=== PATIENT | female | born 1980 | race Caucasian/White ===

== ENCOUNTER 2016-09-01 06:35 | Emergency (ER) | payer BC ==
[~2016-09-01] VITALS: Ht 170.2 cm; Wt 67.0 kg
[~2016-09-01 06:35] MED LIST: PREN0.01 PO
[2016-09-01 06:37] VITALS: BP 171/94; PULSE 69; RESP 16; TEMP 98; O2SAT 100
[2016-09-01] MEDS ORDERED: LEXA10TA PO (06:50)
[2016-09-01] MEDS ORDERED: TRAM50TA PO (06:50)
[2016-09-01] MEDS ORDERED: CYCL1TAB29 PO (06:50)
[2016-09-01 06:51] VITALS: BP 178/104; PULSE 81; RESP 16; O2SAT 100
[2016-09-01] MEDS ORDERED: KETOROLAC TROMETHAMINE 30 MG/ML (IVP) VIAL IVP ONE (07:15)
[2016-09-01] MEDS ORDERED: MORPHINE SULFATE 4 MG/ML INJ IV PUSH ONE ×2 (07:15→08:00)
[2016-09-01] MEDS ORDERED: ONDANSETRON HCL 4 MG/2 ML VIAL IV ONE (07:30)
--- NOTE | 2016-09-01 07:36 | PD ---
HPI Chief Complaint: Pain: Acute or Chronic Time Seen by Provider: 06:51 Travel History International Travel<30 days: No Contact w/Intl Traveler<30days: No Traveled to known affect area: No History of Present Illness HPI So well 36-year-old woman presents to the emergency department with right arm pain. She states that approximately 3 days ago she started getting pain in the right shoulder radiating from the right side neck. Over the next couple days pain became progressively worse, radiated down the outside of the right arm into the thumb and first finger. She describes painful paresthesias and tingling. No numbness. Difficulty using the arm because of pain, but no weakness. [facility] she likely had a pinched nerve and was given prescriptions for anti-inflammatory medicine, tramadol, and a muscle relaxer. She's been taking tramadol and Flexeril but has not helped. Symptoms were severe, she had difficulty sleeping last night, and so she came to the emergency department today. She's never had previous similar symptoms. No recent trauma, increase use, or other similar symptoms. She otherwise had been feeling generally well and healthy prior to the onset of the symptoms. History Past Medical History Narrative Medical PTSD Mitral valve prolapse Tetanus Vaccination: > 5 Years Influenza Vaccination: No LMP: 08/26/16 : 2 Para: 2 Social History Alcohol Use: Yes Tobacco Use: No Allergies-Medications (Allergen,Severity, Reaction): Coded Allergies: No Known Allergies (Verified , 09/01/16) Reported Meds & Prescriptions Reported Meds & Active Scripts Active Reported Lexapro (Escitalopram Oxalate) 10 Mg Tab 10 Mg PO DAILY Tramadol (Tramadol HCl) 50 Mg Tab 50 Mg PO Q6H PRN Flexeril (Cyclobenzaprine HCl) 10 Mg Tab 10 Mg PO TID Vitamins 1 Tab PO DAILY While Review of Systems Except as stated in HPI: all other systems reviewed are Neg Physical Exam Narrative GENERAL: Well-appearing 36-year-old woman, no acute distress. SKIN: Warm and dry. HEAD: Atraumatic. Normocephalic. EYES: Pupils equal and round. No scleral icterus. No injection or drainage. ENT: No nasal bleeding or discharge. Mucous membranes pink and moist. NECK: Trachea midline. No JVD. CARDIOVASCULAR: Regular rate and rhythm. No murmur appreciated. RESPIRATORY: No accessory muscle use. Clear to auscultation. Breath sounds equal bilaterally. GASTROINTESTINAL: Abdomen soft, non-tender, nondistended. Hepatic and splenic margins not palpable. MUSCULOSKELETAL: No obvious deformities. No edema. She guards her right arm from a lot of movement. She describes pain in the neck shoulder down the arm. There is no significant tenderness. Strength is full and equal in the upper extremity, may be trace weakness in elbow flexion and wrist extension. Sensation is intact to light touch and symmetric throughout both upper extremities. Reflexes are little bit diminished in the right brachioradialis, 2 + in both biceps, 1+ both triceps. NEUROLOGICAL: Awake and alert. No obvious cranial nerve deficits. Motor grossly within normal limits. Normal speech. Data Data Last Documented VS Vital Signs Date Time Temp Pulse Resp B/P Pulse Ox O2 Delivery O2 Flow Rate FiO2 09/01/16 09:15 98.3 98 18 144/94 99 Room Air Orders Ketorolac Inj (Toradol Inj) (09/01/16 07:15) Morphine Inj (Morphine Inj) (09/01/16 07:15) Iv Access Insert/Monitor (09/01/16 07:09) Mri C Spine W/O Contrast (09/01/16 ) Ondansetron Inj (Zofran Inj) (09/01/16 07:30) Morphine Inj (Morphine Inj) (09/01/16 08:00) Diphenhydramine Inj (Benadryl Inj) (09/01/16 09:15) Methylprednisolone So Succ Inj (Solumedr (09/01/16 09:15) Hydromorphone Pf Inj (Dilaudid Pf Inj) (09/01/16 10:00) MDM Medical Decision Making Medical Screen Exam Complete: Yes Emergency Medical Condition: Yes Interpretation(s) MRI cervical spine: Degenerative changes are noted with disc protrusions at C5 6 and C6 7, most pronounced at C6 7 with a large right foraminal protrusion. Differential Diagnosis Herniated disc, radiculopathy, dissection or occlusion, shingles, other Narrative Course Medical decision making This is a 36-year-old woman who presents to the emergency department with what appears to be a right sided C6 radiculopathy. She is no history of neck problems. She appears been pretty significant discomfort. She may have trace motor weakness on that side. Other potential etiologies such as dissection seem unlikely. No evidence of infection. No symptoms outside the right arm. We'll check MRI of the C-spine, likely place steroids, opiates. FINAL: MRI confirms a herniated disc of the right C6-C7 foraminal protrusion consistent with C6 radiculopathy. Improved after steroid bolus. She developed some blotchiness of the MRI was concern for allergic reaction. I think this may been a little bit hives and the morphine wore some vasomotor blotchiness on her skin. She was well now. We'll continue steroid taper. Opiates as needed. Diagnosis Primary Impression: Herniated disc, cervical Departure Forms: Tests/Procedures, Work Release Enter return to work date: Sep 08, 2016 Additional Instructions: Take steroid taper as prescribed. Take Lortab as needed for pain. Follow-up with her primary physician in the next 5-7 days. Return to emergency department for any worsening pain, any weakness, or any other new or worsening symptoms. Med/Other Pt SpecificInfo: Prescription(s) given Scripts Hydrocodone-Acetaminophen (Lortab)5-325 Mg Tab1-2 Tab PO Q6H PRN (PAIN) #30 TAB Ref 0 Prov:Nilay Simon MD 09/01/16 Prednisone (48) 10 mg tab Dose Pack 10 Mg Dspk10 Mg PO DIRECTED #1 DSPK Ref 0 Prov:Nilay Simon MD 09/01/16 Disposition: 01 DISCHARGE HOME Condition: Stable Nilay Simon MD Sep 01, 2016 07:35
[2016-09-01 09:15] VITALS: BP 144/94; PULSE 98; RESP 18; TEMP 98.3; O2SAT 99
[2016-09-01] MEDS ORDERED: diphenhydrAMINE HCL 50 MG/ML VIAL IV PUSH ONE (09:15)
[2016-09-01] MEDS ORDERED: methylPREDNISolone SOD SUCC 125 MG/2 ML VIAL IV PUSH ONE (09:15)
--- NOTE | 2016-09-01 09:59 | RADRPT ---
EXAM DATE/TIME: 09/01/2016 09:25 [facility] COMPARISON: No previous studies available for comparison. INDICATIONS : Neck pain radiating down right arm. MEDICAL HISTORY : None. SURGICAL HISTORY : Cholecystectomy. ENCOUNTER: Subsequent ACUITY: 3 day PAIN SCORE: 6/10 LOCATION: Right arm TECHNIQUE: Multiplanar, multisequence MRI examination of the cervical spine was performed. FINDINGS: VERTEBRAE: Normal vertebral body height. Homogeneous marrow signal. ALIGNMENT: No evidence of subluxation. CORD: Normal configuration and signal. POST FOSSA: The cerebellar tonsils are normal in position. C2-C3: The thecal sac has a normal configuration. There is no evidence of disc herniation or spinal canal s tenosis. The neural foramina are patent bilaterally. C3-C4: Minimal posterior disc bulge with no canal or foraminal narrowing. C4-C5: The thecal sac has a normal configuration. There is no evidence of disc herniation or spinal canal s tenosis. The neural foramina are patent bilaterally. C5-C6: Eccentric to the right the ventral thecal sac with mild canal stenosis. No foraminal stenosis. Mild a butment of the C6 exiting nerve root on the right suspected. C6-C7: Right foraminal disc protrusion with mass effect on the C7 nerve roots. This measures 9 x 5.7 mm in t ransverse and AP dimension on axial image 20 of series 5. Mild canal stenosis. C7-T1: The thecal sac has a normal configuration. There is no evidence of disc herniation or spinal canal s tenosis. The neural foramina are patent bilaterally. CONCLUSION: Degenerative changes are noted with disc protrusions at C5-6 and C6-7, most pronounced at C6-7 with a large right foraminal protrusion. Melvin Bender MD on September 01, 2016 at 9:55 Board Certified Radiologist. This report was verified electronically.
[2016-09-01] MEDS ORDERED: HYDROmorphone HCL PF 1 MG/ML VIAL IVS ONE (10:00)
[2016-09-01] MEDS ORDERED: PRED10PA2 PO (10:41)
[2016-09-01] MEDS ORDERED: HYDR-3533 PO (10:41)
[2016-09-01 11:22] VITALS: BP 139/83; TEMP 98.3
== END 2016-09-01 11:05 | disposition home or self-care (01) ==
LOC: NEPE 06:35
DX: M50.123 Cervical disc disorder at C6-C7 level with radiculopathy (principal); I34.1 Nonrheumatic mitral (valve) prolapse
CPT/HCPCS: 72141; 96374; 96375; 99283; J1200; J1885; J2270; J2405; J2930